=== PATIENT | male | born 2000 | race African-American/Black ===

== ENCOUNTER → 2023-06-07 | Outpatient (CLI) | payer OTHER | LOC: M CARPUL 09:40 | PROVIDERS: ATTEND Internal Medicine Critical Care Medicine | DX: I31.39 Other pericardial effusion (noninflammatory) (principal) ==

== ENCOUNTER 2023-09-26 14:46 | Emergency (ER) | payer OTHER ==
[~2023-09-26] VITALS: Ht 188 cm; Wt 85.6 kg
[2023-09-26 17:51] VITALS: BP 138/76; TEMP 98; O2SAT 100
== END 2023-09-26 17:52 | disposition home or self-care (01) ==
LOC: M ED 14:46
DX: S29.011A Strain of muscle and tendon of front wall of thorax, initial encounter (principal); X50.0XXA Overexertion from strenuous movement or load, initial encounter; Y92.009 Unspecified place in unspecified non-institutional (private) residence as the place of occurrence of the external cause; Y93.89 Activity, other specified; Y99.9 Unspecified external cause status

== ENCOUNTER → 2023-12-17 | Outpatient (CLI) | payer OTHER | LOC: M CARPUL 12-12 09:48 | PROVIDERS: ATTEND Internal Medicine Critical Care Medicine | DX: J45.20 Mild intermittent asthma, uncomplicated (principal) ==